=== PATIENT | male | born 1955 | race Caucasian/White ===

== ENCOUNTER 2018-09-30 02:07 | Inpatient (IN) | payer OTHER ==
[2018-09-30] VITALS (7 sets, daily range): BP systolic 80–101; BP diastolic 45–60
[~2018-09-30] VITALS: Ht 193 cm; Wt 78.5 kg
[~2018-09-30 02:07] MED LIST: ACETAMINOPHEN325 M1; ACETAMINOPHEN325 M1 PO; ALBUTEROL2.5 MG/31; ALBUTEROL2.5 MG/31 IH; AMBIEN 5 MG TABL5 M1; AMBIEN 5 MG TABL5 M1 PO; ATIVAN1 MG; BENZTROPINE ME0.5 MG; BISAC-EVAC10 MG; BISACODYL SUPP10 MG RE; CARISOPRODOL 3350 M1; CELEXA 10 MG TA10 M1; CELEXA 10 MG TA10 M1 PO; CELEXA 20 MG TA20 M1; CELEXA 20 MG TA20 M1 PO; CELEXA40 MG; COLACE100 MG; CYCLOBENZAPRINE10 MG; DEPAKOTE 250MG250 M1; DEPAKOTE ER250 MG; DEPAKOTE ER500 MG; DEPAKOTE125 MG PO; DEPAKOTE500 MG PO; DILAUDID 4 MG TA4 M1 PO; DIVALPROEX SOD250 M3 PO; DOCUSATE SODIU100 MG PO; DOLOPHINE HCL5 MG; DUONEB 2.5-0.5 M3 ML; FLEXERIL; FLONASE 0.05%50 MCG; GABAPENTIN100 MG; GABAPENTIN100 MG PO; GLYCOLAX POWDER17 G1 PO; HALDOL5 MG/1 ML; HALOPERIDOL 5 MG5 MG; HALOPERIDOL 5 MG5 MG PO; HALOPERIDOL10 MG; HYDROCODON-ACE1 EAC1 PO; HYDROXYZINE HCL50 MG; HYDROXYZINE HCL50 MG PO; HYDROXYZINE PAM50 MG; LEXAPRO20 MG PO; LISINOPRIL20 MG PO; LORAZEPAM 1 MG T1 MG PO; METHADONE HCL 110 M1 PO; MIRALAX255 GM; MOBIC15 MG PO; MYLANTA 12 OZ355 M1; NEURONTIN 300300 M1; NEURONTIN 300M300 M2 PO; NITROGLYCERIN0.4 MG; OXYCODONE HCL5 M1 PO; POLYOX WSR-3011 GM; PREDNISONE50 MG PO; ROBITUSSIN100 MG/5 M; SENNA; SENNA CONCENTR8.6 MG PO; VERAMYST10 GM; [UNRECOGNIZED DRUG - OTHER]
[2018-09-30 02:40] LABS: HEMATOCRIT 41.5 % (42.0-52.0); HEMOGLOBIN 13.9 gm/dL (14.0-18.0); MCH 32.9 pg (26.0-34.0); MCHC 33.4 g/dL (28.0-37.0); MCV 98.5 fL (80.0-100.0); RBC 4.21 mil/uL (4.50-6.00); WBC 16.6 thou/uL (4.0-11.0)
[2018-09-30 02:44] LABS: CALCIUM 9.1 mg/dL (8.5-10.1); CREATININE 0.7 mg/dL (0.7-1.3); POTASSIUM 3.2 mmol/L (3.5-5.1)
[2018-09-30 03:08] LABS: ABSOLUTE NEUTROPHILS 14.8 thou/uL (1.4-8.2); BASOPHILS 0.3 % (0.0-2.0); EOSINOPHILS 0.1 % (0.0-3.0); LYMPHOCYTES 4.5 % (24.0-44.0); MONOCYTES 6.2 % (1.0-8.0); POLYS 88.9 % (36.0-66.0)
[2018-09-30 03:09] LABS: LARGE PLATELETS OCCASIONAL; PLATELET COUNT 95 thou/uL (150-400); PLATELET ESTIMATE DECREASED
[2018-09-30] MEDS ORDERED: ZOLOFT50 MG PO (05:56)
[2018-09-30] MEDS ORDERED: HALOPERIDOL 5 MG5 MG PO (05:59)
[2018-09-30] MEDS ORDERED: [UNRECOGNIZED DRUG - OTHER] PO (06:00)
[2018-09-30] MEDS ORDERED: TRAZODONE 150150 M1 PO (06:02)
[2018-09-30] MEDS ORDERED: LEVSIN0.125 MG PO (06:06)
[2018-09-30] MEDS ORDERED: MSL20MG/ML PO (06:08)
[2018-10-01] MEDS ORDERED: COLACE 100 MG100 MG PO (02:10)
[2018-10-01] MEDS ORDERED: TYLENOL325 MG PO (02:33)
[2018-10-01] MEDS ORDERED: BENZTROPINE ME0.5 MG PO (02:38)
[2018-10-01] MEDS ORDERED: COLACE100 MG PO (02:54)
[2018-10-01] MEDS ORDERED: ATIVAN1 M1 PO (02:55)
[2018-10-01] MEDS ORDERED: MIRALAX17 GM PO (03:00)
[2018-10-01] MEDS ORDERED: [UNRECOGNIZED DRUG - OTHER] PO (03:03)
[2018-10-01 04:58] VITALS: BP 109/64
[2018-10-01 05:49] LABS: HEMATOCRIT 34.8 % (42.0-52.0); MCV 99.9 fL (80.0-100.0); RBC 3.49 mil/uL (4.50-6.00); RDW 13.8 % (10.5-14.5); WBC 12.6 thou/uL (4.0-11.0)
[2018-10-01 05:54] LABS: HEMOGLOBIN 11.9 gm/dL (14.0-18.0)
[2018-10-01 06:08] LABS: ALBUMIN 2.2 g/dL (3.4-5.0); CALCIUM 8.4 mg/dL (8.5-10.1); CREATININE 0.6 mg/dL (0.7-1.3); PHOSPHORUS 2.3 mg/dL (2.5-4.9); POTASSIUM 3.2 mmol/L (3.5-5.1)
[2018-10-01 08:00] VITALS: BP 104/64
[2018-10-01 19:23] VITALS: BP 94/52
[2018-10-02 04:42] VITALS: BP 143/73
[2018-10-02 19:42] VITALS: BP 112/56
[2018-10-03 07:31] VITALS: BP 115/53
[2018-10-03 16:10] VITALS: BP 132/53
[2018-10-03 19:25] VITALS: BP 91/75
[2018-10-04 04:02] VITALS: BP 114/65
[2018-10-04 07:30] VITALS: BP 100/54
[2018-10-04] MEDS ORDERED: HYDROCORTISONE120 M4 TOP (11:01)
[2018-10-04] MEDS ORDERED: CLEOCIN HCL150 MG PO (11:01)
[2018-10-04] MEDS ORDERED: ACIDOPHILUS1 EAC4 PO (11:07)
== END 2018-10-04 15:30 | DRG 871 ==
LOC: ER 02:07 → EROBS 03:52 → 4W 03:52
PROVIDERS: Emergency Medicine; Hospitalist
DX: A41.9 Sepsis, unspecified organism (principal); G92 Toxic encephalopathy; L03.113 Cellulitis of right upper limb; G91.9 Hydrocephalus, unspecified; F32.9 Major depressive disorder, single episode, unspecified; I10 Essential (primary) hypertension; F41.9 Anxiety disorder, unspecified; K59.00 Constipation, unspecified; K21.9 Gastro-esophageal reflux disease without esophagitis; G89.4 Chronic pain syndrome; J44.9 Chronic obstructive pulmonary disease, unspecified; E11.9 Type 2 diabetes mellitus without complications; G40.909 Epilepsy, unspecified, not intractable, without status epilepticus; Z66 Do not resuscitate; S40.822A Blister (nonthermal) of left upper arm, initial encounter; W18.39XA Other fall on same level, initial encounter; Y93.89 Activity, other specified; Y92.89 Other specified places as the place of occurrence of the external cause; Z87.81 Personal history of (healed) traumatic fracture; Z88.8 Allergy status to other drugs, medicaments and biological substances; Y99.8 Other external cause status; Z79.899 Other long term (current) drug therapy; Z88.1 Allergy status to other antibiotic agents; Z28.89 Immunization not carried out for other reason
CPT/HCPCS: 10040